=== PATIENT | female | born 1950 | race Two or more races ===

== ENCOUNTER 2022-05-09 14:29 | Emergency (ER) | payer SELFPAY ==
[~2022-05-09] VITALS: Ht 157.5 cm; Wt 68.5 kg
--- NOTE | 2022-05-09 14:31 | NUR ---
CALLED DEEPALI RT [phone]. HE IS ON HIS WAY TO [facility] BEDSIDE
--- NOTE | 2022-05-09 14:35 | NUR ---
[id number] frm a clinic c/o worsening SOB x 5 days. 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 PLACED IN BED, AAOX4, BREATHING UNLABORED. FINAL RAIL CUTTER AT BEDSIDE CHANGED CPAP TO SIMPLE FACE MASK AT 10LIT O2 SATURATING AT 100%.
--- NOTE | 2022-05-09 14:50 | NUR ---
BLOOD DRAWN SENT TO LAB
--- NOTE | 2022-05-09 15:06 | NUR ---
SWAB FOR COVID19 SENT TO LAB
[2022-05-09 15:16] LABS: BASOPHILS % (AUTO) 0.5 % (0.0-2.0); EOSINOPHILS % (AUTO) 4.4 % (0.0-6.0); HEMATOCRIT 24 % (33-45); HEMOGLOBIN 7.8 g/dL (11.5-14.8); LYMPHOCYTES # (AUTO) 0.7 K/uL (0.8-4.8); LYMPHOCYTES % (AUTO) 11.7 % (20.0-44.0); MEAN CORPUSCULAR HGB CONC 32 g/dl (31.0-36.0); MEAN CORPUSCULAR VOLUME 62 fL (82-100); MONOCYTES # (AUTO) 0.9 K/uL (0.1-1.30); MONOCYTES % (AUTO) 13.9 % (2.0-12.0); NEUTROPHILS # (AUTO) 4.3 K/uL (1.8-8.9); NEUTROPHILS % (AUTO) 69.5 % (43.0-81.0); PLATELET COUNT (AUTO) 484 K/uL (150-450); WHITE BLOOD COUNT (AUTO) 6.2 K/uL (4.3-11.0)
--- NOTE | 2022-05-09 15:30 | NUR ---
Patient does not wish to proceed with medical care recommended by Dr. MOSHER. Patient given information related to possible complications, up to and including , which could occur as a result of leaving the hospital at this time. Patient verbalizes understanding of risks involved due to leaving against medical advice. Patient has signed AMA form.
--- NOTE | 2022-05-09 15:30 | NUR ---
IV removed. Catheter intact and site benign. Pressure and 4x4 applied to site. No bleeding noted.
[2022-05-09 15:56] LABS: ALANINE AMINOTRANSFERASE 29 U/L (12-78); ALBUMIN 3.4 g/dL (3.4-5.0); ALKALINE PHOSPHATASE 69 U/L (46-116); ASPARTATE AMINOTRANSFERASE 40 U/L (15-37); BILIRUBIN,DIRECT 0.1 mg/dL (0.0-0.2); BILIRUBIN,TOTAL 0.4 mg/dL (0.2-1.0); CALCIUM, SERUM 9.3 mg/dL (8.5-10.1); CARBON DIOXIDE 26 mmol/L (21-32); CHLORIDE 104 mmol/L (98-107); CREATININE 0.9 mg/dL (0.6-1.3); GLUCOSE 101 mg/dL (74-106); SODIUM SERUM 139 mmol/L (136-145); TOTAL PROTEIN, SERUM 7.8 g/dL (6.4-8.2); UREA NITROGEN, BLOOD 11 mg/dL (7-18)
[2022-05-09 17:26] VITALS: BP 138/90
[2022-05-09 18:54] LABS: EOSINOPHILS % (MANUAL) 2 % (0-4); LYMPHOCYTES % (MANUAL) 38 % (16-48); MONOCYTES % (MANUAL) 7 % (0-11.0); NEUTROPHILS % (MANUAL) 53 (42-76)
== END 2022-05-09 15:30 | disposition left against medical advice (07) ==
LOC: ER 14:50
DX: R06.02 Shortness of breath (principal); Z20.822 Contact with and (suspected) exposure to COVID-19; J44.9 Chronic obstructive pulmonary disease, unspecified; I10 Essential (primary) hypertension; Z53.29 Procedure and treatment not carried out because of patient's decision for other reasons
CPT/HCPCS: 99284; 87426; 93005; 84145; 85025; 80048; 87040 ×2; 83605; 80076; 36415; 84484; 85730; 85007; C9803